=== PATIENT | female | born 1965 | race Caucasian/White ===

== ENCOUNTER 2020-04-03 17:07 | Inpatient (IN) | payer MEDICAID, OTHER ==
--- NOTE | 2020-04-03 18:12 | ED ---
Psych HPI - General Chief Complaint: Psychiatric Symptoms Stated Complaint: Mental Health Time Seen by Provider: 04/03/20 17:50 Source: patient, RN notes reviewed Mode of arrival: ambulatory - History of Present Illness Initial Comments: This is a 54-year-old female with a history of situational depression Who presents with complaints of feeling depressed and suicidal. She states her son was killed 2 weeks ago after he was run over by a boat in a [place] and was for admission. He does admit to drinking 3 beers today. She denies any drugs. No other modifying factors at this time. Patient does state that she thought about swimming out into the [place] [facility] [place] and getting run over by a boat herself. MD Complaint: suicidal ideation, feels depressed - Related Data Home Medications Medication Instructions Recorded Confirmed ALPRAZolam [Xanax] 0.25 mg PO DAILY PRN 04/03/20 04/03/20 Acetaminophen/Diphenhydramine 2 tab PO HS 04/03/20 04/03/20 [Tylenol PM 500-25mg] FLUoxetine HCL [PROzac] 40 mg PO DAILY 04/03/20 04/03/20 traZODone HCL 25 mg PO HS PRN 04/03/20 04/03/20 Allergies Allergy/AdvReac Type Severity Reaction Status Date / Time No Known Allergies Allergy Verified 04/03/20 20:08 Review of Systems ROS Statement: Those systems with pertinent positive or pertinent negative responses have been documented in the HPI. ROS Other: All systems not noted in ROS Statement are negative. Past Medical History Past Medical History: No Reported History History of Any Multi-Drug Resistant Organisms: None Reported Past Surgical History: No Surgical Hx Reported Past Psychological History: No Psychological Hx Reported Smoking Status: Never smoker Past Alcohol Use History: Daily Past Drug Use History: None Reported General Exam - General Exam Comments Initial Comments: This is a well-developed well-nourished awake alert oriented 3 female Limitations: no limitations General appearance: alert, in no apparent distress Head exam: Present: atraumatic, normocephalic, normal inspection Eye exam: Present: normal appearance, PERRL, EOMI. Absent: scleral icterus, conjunctival injection, periorbital swelling ENT exam: Present: normal exam, mucous membranes moist Neck exam: Present: normal inspection, full ROM. Absent: tenderness, meningismus, lymphadenopathy Respiratory exam: Present: normal lung sounds bilaterally. Absent: respiratory distress, wheezes, rales, rhonchi, stridor Cardiovascular Exam: Present: regular rate, normal rhythm, normal heart sounds. Absent: systolic murmur, diastolic murmur, rubs, gallop, clicks GI/Abdominal exam: Present: soft. Absent: distended, tenderness, guarding, rebound, rigid Extremities exam: Present: normal inspection, full ROM, normal capillary refill. Absent: tenderness, pedal edema, joint swelling, calf tenderness Back exam: Present: full ROM Neurological exam: Present: alert, oriented X3, CN II-XII intact Psychiatric exam: Present: normal affect, normal mood Skin exam: Present: warm, dry, intact, normal color. Absent: rash Course Vital Signs 04/03/20 17:32 Temperature 98 F Pulse Rate 79 Respiratory 18 Rate Blood Pressure 129/87 O2 Sat by Pulse 98 Oximetry Medical Decision Making - Medical Decision Making The patient was evaluated by psychiatric service will be admitted for inpatient treatment for depression - Lab Data Lab Results 04/03/20 Range/Units 18:12 Urine Opiates Screen Not Detected (NotDetected) Ur Oxycodone Screen Not Detected (NotDetected) Urine Methadone Screen Not Detected (NotDetected) Ur Propoxyphene Screen Not Detected (NotDetected) Ur Barbiturates Screen Not Detected (NotDetected) U Tricyclic Antidepress Not Detected (NotDetected) Ur Phencyclidine Scrn Not Detected (NotDetected) Ur Amphetamines Screen Not Detected (NotDetected) U Methamphetamines Scrn Not Detected (NotDetected) U Benzodiazepines Scrn Detected H (NotDetected) Urine Cocaine Screen Not Detected (NotDetected) U Marijuana (THC) Screen Detected H (NotDetected) Disposition Clinical Impression: Depression, Suicidal ideation Disposition: TRANSFER TO PSYCH HOSP/UNIT Condition: Fair Referrals: Nonstaff,Physician [Primary Care Provider] - 1-2 days
[2020-04-03 19:05] LABS: Amphetamine Screen,Urine Not Detected (NotDetected); Barbiturate Screen,Urine Not Detected (NotDetected); Benzodiazepines Screen,Urine Detected (NotDetected); Cocaine Screen,Urine Not Detected (NotDetected); Methadone Screen, Urine Not Detected (NotDetected); Opiate Screen,Urine Not Detected (NotDetected); Oxycodone Screen, Urine Not Detected (NotDetected); Phencyclidine Screen,Urine Not Detected (NotDetected); Tricyclic Antidepressant,Urine Not Detected (NotDetected); Urn Cannabinoid Scrn Detected (NotDetected)
[2020-04-03] MEDS ORDERED: MAGNESIUM HYDROXIDE 2,400 MG/10 ML CUP PO PRN (20:52)
[2020-04-03] MEDS ORDERED: ACETAMINOPHEN TAB 325 MG TAB PO PRN (20:52)
[2020-04-03] MEDS ORDERED: MAG HYDROX/AL HYDROX/SIMETH 30 ML CUP PO PRN (20:52)
[2020-04-03] MEDS ORDERED: ZIPRASIDONE 20 MG VIAL IM PRN (20:52)
[2020-04-03] MEDS ORDERED: LORazepam 2 MG/ML INJ IM PRN (20:57)
[2020-04-03] MEDS: LORazepam 1 MG TAB PO PRN (21:58)
--- NOTE | 2020-04-04 03:44 | P.MDCNMH ---
History of Present Illness H&P Date: 04/04/20 Chief Complaint: Suicidal ideation 54-year-old female denies any past medical or mental health issues Patient comes in due to suicidal ideation. She currently denies any suicidal thoughts. She reports that she has lost her son of 18 years old about 2 weeks ago she's been devastated since then. Today she was having thoughts of taking a boat and end her life. She discussed that with her uncle who was concerned regarding suicidal thoughts and recommended that she comes to the hospital for treatment. She was recently started on Prozac about 2 weeks ago but she doesn't feel that it's been helping her yet. Otherwise she denies any physical complaints at this point denies any fevers chills chest pain or trouble breathing denies any dizziness lightheadedness nausea vomiting or abdominal pain Review of Systems Pertinent positives as noted in HPI. 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 Past Anesthesia/Blood Transfusion Reactions: No Reported Reaction Smoking Status: Former smoker Medications and Allergies Home Medications Medication Instructions Recorded Confirmed Type ALPRAZolam [Xanax] 0.25 mg PO DAILY PRN 04/03/20 04/03/20 History Acetaminophen/Diphenhydramine 2 tab PO HS 04/03/20 04/03/20 History [Tylenol PM 500-25mg] FLUoxetine HCL [PROzac] 40 mg PO DAILY 04/03/20 04/03/20 History traZODone HCL 25 mg PO HS PRN 04/03/20 04/03/20 History Allergies Allergy/AdvReac Type Severity Reaction Status Date / Time No Known Allergies Allergy Verified 04/03/20 20:08 Physical Exam Vitals: Vital Signs Temp Pulse Pulse Resp BP BP Pulse Ox 04/04/20 00:47 97.6 F 74 18 127/87 99 04/03/20 20:59 98.1 F 71 18 135/79 100 04/03/20 17:32 98 F 79 18 129/87 98 Intake and Output 04/03/20 04/03/20 04/04/20 14:59 22:59 06:59 Other: Weight 77.111 kg 79.832 kg Constitutional: No acute distress, conversant, pleasant Eyes: Anicteric sclerae, moist conjunctiva, no lid-lag Pupils equal round reactive to light ENMT: NC/AT Oropharynx clear, no erythema, exudates Neck: Supple, FROM, no masses, or JVD No carotid bruits No thyromegaly Lungs: Clear to auscultation Clear to percussion Normal respiratory effort, no accessory muscle use Cardiovascular: Heart regular in rate and rhythm, No murmurs, gallops, or rubs No peripheral edema Abdominal: Soft Nontender, no guarding, rebound or rigidity Abdomen moving with respiration Normoactive bowel sounds No hepatomegaly, No splenomegaly No palpable mass No abdominal wall hernia noted Skin: Normal temperature, tone, texture, turgor No induration No subcutaneous nodules No rash, lesions No ulcers Extremities: No digital cyanosis No clubbing Pedal pulses intact and symmetrical Radial pulses intact and symmetrical No calf tenderness Psychiatric: Alert and oriented to person, place and time Appropriate affect fair judgement Neuro Muscles Strength 5/5 in all 4 extremities Sensation to light touch grossly present throughout Cranial nerves II-XII grossly intact No focal sensory deficits Lymphatics: no palpable cervical or supraclavicular , or inguinal lymph nodes Cranial Nerve Examination - Cranial Nerves Cranial Nerve II- Optic: Intact Cranial Nerve III- Oculomotor: Intact Cranial Nerve IV- Trochlear: Intact Cranial Nerve V- Trigeminal: Intact Cranial Nerve - Abducens: Intact Cranial Nerve VII- Facial: Intact Cranial Nerve VIII- Auditory: Intact Cranial Nerve IX- Glossopharyngeal: Intact Cranial Nerve X- Vagus: Intact Cranial Nerve XI- Accessory: Intact Cranial Nerve XII- Hypoglossal: Intact Results Labs: Abnormal Lab Results - Last 24 Hours (Table) 04/03/20 Range/Units 18:12 U Benzodiazepines Scrn Detected H (NotDetected) U Marijuana (THC) Screen Detected H (NotDetected) Assessment and Plan Assessment: Suicidal thoughts Management per psych Follow-up labs Thank you for allowing us to participate in the care of this patient. We will follow peripherally. Do not hesitate to contact us with questions. Someone can be reached from the [facility] hospitalist group at all hours of the day at [phone].
[2020-04-04 07:58] LABS: Basophils # (A) 0.2 k/uL (0-0.2); Basophils % (A) 2 %; Eosinophils # (A) 0.3 k/uL (0-0.7); Eosinophils % (A) 4 %; HCT 44.9 % (34.0-46.0); Lymphocytes # (A) 2.1 k/uL (1.0-4.8); Lymphocytes % (A) 28 %; MCH 28.8 pg (25.0-35.0); MCHC 31.3 g/dL (31.0-37.0); MCV 92.2 fL (80.0-100.0); Mean Platelet Volume 6.5; Monocytes # (A) 0.3 k/uL (0-1.0); Monocytes % (A) 4 %; Neutrophils # (A) 4.7 k/uL (1.3-7.7); Neutrophils % (A) 61 %; Platelet Count 347 k/uL (150-450); RBC 4.87 m/uL (3.80-5.40); RDW 12.3 % (11.5-15.5); WBC 7.7 k/uL (3.8-10.6)
[2020-04-04 08:09] LABS: ALT 82 U/L (4-34); AST 58 U/L (14-36); African American GFR (CKD) >90 (>60 ml/min/1.73 sqM); Albumin 4.7 g/dL (3.5-5.0); Alkaline Phosphatase 80 U/L (38-126); Anion Gap 12 mmol/L; Blood Urea Nitrogen 13 mg/dL (7-17); Calcium 9.7 mg/dL (8.4-10.2); Carbon Dioxide 28 mmol/L (22-30); Chloride 101 mmol/L (98-107); Cholesterol 252 mg/dL (<200); Glucose 100 mg/dL (74-99); HDL Cholesterol 68 mg/dL (40-60); LDL Cholesterol,Calculated 163 mg/dL (0-99); Non-African American GFR(CKD) >90 (>60 ml/min/1.73 sqM); Potassium 4.5 mmol/L (3.5-5.1); Sodium 141 mmol/L (137-145); Total Bilirubin 3.1 mg/dL (0.2-1.3); Total Protein 8.1 g/dL (6.3-8.2); Triglycerides 105 mg/dL (<150)
[2020-04-04] MEDS ORDERED: PNEUMOCOCCAL VACC-PNEUMOVAX 23 25 MCG/0.5 ML VIAL IM ONE (09:00)
[2020-04-04] MEDS: LORazepam 1 MG TAB PO PRN (09:45)
[2020-04-04] MEDS: FLUoxetine HCL 20 MG CAP PO SCH (12:30)
--- NOTE | 2020-04-04 13:21 | P.HP ---
Psychiatric H&P - . H&P Date: 04/04/20 History & Physical: Allergies Allergy/AdvReac Type Severity Reaction Status Date / Time No Known Allergies Allergy Verified 04/03/20 20:08 Vital Signs Temp 99.1 F 04/04/20 09:43 Pulse 119 H 04/04/20 09:43 Resp 16 04/04/20 09:43 BP 123/81 04/04/20 09:43 Pulse Ox 98 04/04/20 09:43 Intake & Output 04/03/20 04/04/20 04/04/20 18:59 06:59 18:59 Weight 77.111 kg 79.832 kg Laboratory Last Values WBC 7.7 k/uL (3.8-10.6) 04/04/20 07:18 RBC 4.87 m/uL (3.80-5.40) 04/04/20 07:18 Hgb 14.0 gm/dL (11.4-16.0) 04/04/20 07:18 Hct 44.9 % (34.0-46.0) 04/04/20 07:18 MCV 92.2 fL (80.0-100.0) 04/04/20 07:18 MCH 28.8 pg (25.0-35.0) 04/04/20 07:18 MCHC 31.3 g/dL (31.0-37.0) 04/04/20 07:18 RDW 12.3 % (11.5-15.5) 04/04/20 07:18 Plt Count 347 k/uL (150-450) 04/04/20 07:18 Neutrophils % 61 % 04/04/20 07:18 Lymphocytes % 28 % 04/04/20 07:18 Monocytes % 4 % 04/04/20 07:18 Eosinophils % 4 % 04/04/20 07:18 Basophils % 2 % 04/04/20 07:18 Neutrophils # 4.7 k/uL (1.3-7.7) 04/04/20 07:18 Lymphocytes # 2.1 k/uL (1.0-4.8) 04/04/20 07:18 Monocytes # 0.3 k/uL (0-1.0) 04/04/20 07:18 Eosinophils # 0.3 k/uL (0-0.7) 04/04/20 07:18 Basophils # 0.2 k/uL (0-0.2) 04/04/20 07:18 Sodium 141 mmol/L (137-145) 04/04/20 07:18 Potassium 4.5 mmol/L (3.5-5.1) 04/04/20 07:18 Chloride 101 mmol/L (98-107) 04/04/20 07:18 Carbon Dioxide 28 mmol/L (22-30) 04/04/20 07:18 Anion Gap 12 mmol/L 04/04/20 07:18 BUN 13 mg/dL (7-17) 04/04/20 07:18 Creatinine 0.70 mg/dL (0.52-1.04) 04/04/20 07:18 Est GFR (CKD-EPI)AfAm >90 (>60 ml/min/1.73 sqM) 04/04/20 07:18 Est GFR (CKD-EPI)NonAf >90 (>60 ml/min/1.73 sqM) 04/04/20 07:18 Glucose 100 mg/dL (74-99) H 04/04/20 07:18 Calcium 9.7 mg/dL (8.4-10.2) 04/04/20 07:18 Total Bilirubin 3.1 mg/dL (0.2-1.3) H 04/04/20 07:18 AST 58 U/L (14-36) H 04/04/20 07:18 ALT 82 U/L (4-34) H 04/04/20 07:18 Alkaline Phosphatase 80 U/L (38-126) 04/04/20 07:18 Total Protein 8.1 g/dL (6.3-8.2) 04/04/20 07:18 Albumin 4.7 g/dL (3.5-5.0) 04/04/20 07:18 Triglycerides 105 mg/dL (<150) 04/04/20 07:18 Cholesterol 252 mg/dL (<200) H 04/04/20 07:18 LDL Cholesterol, Calc 163 mg/dL (0-99) H 04/04/20 07:18 HDL Cholesterol 68 mg/dL (40-60) H 04/04/20 07:18 TSH 1.940 mIU/L (0.465-4.680) 04/04/20 07:18 Urine Opiates Screen Not Detected (NotDetected) 04/03/20 18:12 Ur Oxycodone Screen Not Detected (NotDetected) 04/03/20 18:12 Urine Methadone Screen Not Detected (NotDetected) 04/03/20 18:12 Ur Propoxyphene Screen Not Detected (NotDetected) 04/03/20 18:12 Ur Barbiturates Screen Not Detected (NotDetected) 04/03/20 18:12 U Tricyclic Antidepress Not Detected (NotDetected) 04/03/20 18:12 Ur Phencyclidine Scrn Not Detected (NotDetected) 04/03/20 18:12 Ur Amphetamines Screen Not Detected (NotDetected) 04/03/20 18:12 U Methamphetamines Scrn Not Detected (NotDetected) 04/03/20 18:12 U Benzodiazepines Scrn Detected (NotDetected) H 04/03/20 18:12 Urine Cocaine Screen Not Detected (NotDetected) 04/03/20 18:12 U Marijuana (THC) Screen Detected (NotDetected) H 04/03/20 18:12 04/04/20 13:14 IDENTIFYING DATA: Patient is a 54-year-old female who currently is staying with her uncle in a house however lives in [place] permanently has one son and is currently and unemployed. HPI: Patient presented to the hospital yesterday with complaints of depression and suicidal thoughts. Patient reported to the ER staff her son was killed approximately 2 weeks ago as he was [place] a [place] and also that her 2 years ago and was having thoughts of swimming in the [place] to get killed by a boat prior to coming into the hospital was brought in by her uncle. Patient's UDS is positive for THC and benzodiazepines. Patient was agreeable to be interviewed however was minimizing her suicidal thoughts and her symptoms. She states that she is currently going through grief due to her significant losses in her life. She states that she had thoughts of jumping in the river however states that "it was just the shock of it all". She claims that she is still trying to organize the memorial service for her son and is going to his things and was feeling tearful however states that after she took an Ativan last night that she feels less tearful and less sad today. She admits to ongoing grief some guilt however claims that her concentration and appetite are fair. She states that she is sleeping approximately 8-9 hours a night. Patient denies any suicidal or homicidal ideations intent or plan. At this time patient denies any auditory or visual hallucinations. Patient denies any flight of ideas racing thoughts and increased in goal directed behavior. Patient admits to using alcohol drinking one bottle of wine per night for the past 2-3 years and she denies any DUIs or any history of DTs. She denies any cigarette use. She claims that she smokes occasional marijuana. PAST PSYCHIATRIC HISTORY: Patient states that she has a history of depression and anxiety. Claims that she was previously on Prozac and Xanax and trazodone Patient denies any previous psychiatric hospitalizations.. Patient claims that she does not have an outpatient psychiatrist however does follow up with her primary care physician for medications. She states that she does see a therapist in [place] regularly. Patient denies any history of suicide attempts in the past. PMH:denies ALLERGIES: as per EMR CHEMICAL DEPENDENCY HISTORY: as per HPI FAMILY PSYCHIATRIC/SUBSTANCE USE HISTORY: denies SOCIAL HISTORY: Patient was born and raised in [facility] and claims that she moved to [place] afterwards. She is currently living in [place] and a house however now staying locally with her uncle. She claims that she has one son and is currently and unemployed. She states that she graduated college with a bachelor in economics. MENTAL STATUS EXAM: General Appearance: Patient appears to be stated age is alert, argumentative and guarded. patient appears to have fair hygiene and grooming. Behavior: Patient is seated without any agitated behavior. Guarded and argumentative. Speech: Patient's speech is fluent and nonpressured. Mood/Affect: Patient reports their mood is depressed and anxious, affect is congruent and constricted. Suicidality/Homicidality: Patient denies having any homicidal ideation intent or plan. Denies any suicidal ideations intent or plan Perceptions: Patient denies any visual hallucinations and denies any auditory hallucinations Though content/process: There is no evidence of any delusional thought content and thought process is linear and goal-directed. Minimizing her symptoms and demanding discharge. Memory and concentration: AOX3, grossly intact for the purposes of this session. Can spell "WORLD" backwards Judgment and insight: poor STRENGTHS/WEAKNESSES: strength is that patient is resilient. Weakness is that patient has poor judgment and is impulsive INTELLECT: average IMPRESSIONS: Major depressive disorder, without psychotic features Anxiety disorder unspecified Cannabis abuse Alcohol use disorder PLAN: -Patient is admitted under voluntary status to [facility] for stabilization of psychiatric symptoms and safety. Patient signed adult voluntary form and medication consent and is placed in patient's chart. -Medications : Will start patient on Prozac 40 mg daily for mood/anxiety. This dose can be titrated up as needed over the weekend. Patient is also agreeable to take trazodone 50 mg daily at bedtime for insomnia/mood. -Ativan and Geodon PRN for agitation/aggression -Started thiamine, MVM for etoh use -CIWA protocol with Ativan PRN for ETOH withdrawal -Patient was counselled on substance abuse and desired to cut back on use -Patient was informed of the risks, benefits and side effects of the medication and patient verbally consented to taking the medications. Patient signed med consent form and was placed in chart. -Internal Medicine consult to perform medical evaluation and physical. -NRT -not needed as patient does not smoke. -SW on board for discharge planning. Encourage patient to participate in groups to work on coping skills. Likely discharge early next week if patient shows significant improvement over the weekend. We'll speak patient about rehab and other substance use treatment options.
[2020-04-04] MEDS: traZODone HCL 50 MG TAB PO SCH (20:13)
[2020-04-05] MEDS: LORazepam 1 MG TAB PO PRN (09:28)
[2020-04-05] MEDS: FLUoxetine HCL 20 MG CAP PO SCH (09:29)
[2020-04-05] MEDS: THIAMINE 100 MG TAB PO SCH (09:29)
[2020-04-05] MEDS: MULTIVITAMINS, THERA 1 EACH TAB PO SCH (09:29)
[2020-04-05] MEDS: FOLIC ACID 1 MG TAB PO SCH (09:29)
[2020-04-05] MEDS: traZODone HCL 50 MG TAB PO SCH (20:47)
--- NOTE | 2020-04-05 21:59 | PN ---
PROGRESS NOTE CHIEF COMPLAINT: The patient was depressed with suicidal thinking. She had significant grief issues with the of her son 2 weeks prior to admission. INTERVAL HISTORY: The patient has been doing fair. She had a quiet evening last night. She has attended some groups. She chose not to attend others. She has received p.r.n.'s for anxiety. She slept fairly well last night. Today she has been up and she comes out in the day area. She has been attending groups today. She has been fairly interactive in the group activities. Her CIWA scales have been negligible except for 1 this morning when her assessment was 8. She notes that she had been off Prozac for about 6 months, though then started Prozac again 2 weeks ago. She said she started on 40 mg a day and has had no problems with it. She acknowledged that she has been drinking a bottle of wine per day. He says that she can relate her drinking to some of her issues of depression. She has been cooperative with care. She tolerates her psychotropic medications. MENTAL STATUS: Patient gave fairly good eye contact. She was restless. She answered questions with brief responses. Her thoughts were clear. She did not say a lot, though she responded appropriately to questions. Her affect was constricted. Her mood reserved. She appeared somewhat distressed. There was no indication of thought disorder. She voiced no thoughts of harm to self or others. Cognition was clear. ASSESSMENT: I will continue the current diagnosis and treatment plan. The patient will continue Prozac 40 mg a day and trazodone 50 mg at bedtime. We will continue to engage the patient in individual and group therapeutic activities. She appears to be making progress in terms of some improvement of mood. I discussed expectations for antidepressant treatment for depression. We discussed the time course, reviewed potential side effects. We will focus on stabilization and discharge planning. MMODL / IJN: [id number] /
[2020-04-06] MEDS: MULTIVITAMINS, THERA 1 EACH TAB PO SCH (08:31)
[2020-04-06] MEDS: FOLIC ACID 1 MG TAB PO SCH (08:31)
[2020-04-06] MEDS: THIAMINE 100 MG TAB PO SCH (08:31)
[2020-04-06] MEDS: FLUoxetine HCL 20 MG CAP PO SCH (08:31)
--- NOTE | 2020-04-06 10:42 | PN ---
PROGRESS NOTE DATE OF SERVICE: 04/06/2020 CHIEF COMPLAINT: The patient was depressed with suicidal thinking. She has significant grief issues with the of her son 2 weeks prior to admission. INTERVAL HISTORY: Patient has been doing fair. She had a quiet evening last night. She comes out in the day area. She interacts with others. She has been attending groups. She generally prefers to socialize with a few peers. She slept 8 hours last night. Today she has been up. She continues with groups. Her CIWA scores have been zero. She has run a high pulse. Her vital signs this morning include BP 111/75, pulse 103, temp 98.7, respirations 18, oxygen saturation 99. The patient talked at length today about grief issues regarding her son who in an accident [place] a [place] when he was run over by a boat. She notes that she has another son who is 21. She says their relationship is poor, though she wants to continue to work to try to improve that. She notes that she has grief issues over the of her 2 years ago. She actually was at the time that he , though she said they remained close friends even though they . She notes that she is in a significant transition period in her life, in that she needs to move in a different direction from the social sphere she was involved in because there was a lot of drinking. She notes that she has been drinking regularly on a daily basis at least 1 bottle of wine per day for the last 2 years. 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 She says she does have some plans of looking to work in volunteer work to help deal with grief issues. She says that she has interest right now in going into a short-term rehab program, possibly for 2 weeks. She says she is strongly motivated to stay completely off alcohol and all other abusive substances. She tolerates her psychotropic medication. MENTAL STATUS: Patient gave good eye contact. She was restless. She answered questions with direct responses. She was spontaneous and interactive. Her affect was blunted. Her mood was depressed. She was moderately distressed. She had a significant focus on talking about grief issues. There was no indication of psychotic symptoms. She voiced no thoughts of harm to self or others. Cognition was clear. ASSESSMENT: I will continue the current diagnosis and treatment plan. The patient will continue Prozac 40 mg a day. We had an extensive discussion of withdrawal issues. I encouraged her to consider longer-term therapy, though she is not likely to benefit from individual psychotherapy until she is least a few months clean of alcohol. She says she has talked with the delinquency prevention social worker here in regard to a referral for inpatient substance abuse treatment. Again, she is in transition in regard to her return to [place], though does seem to have some awareness of what issues she needs to address. We will focus on stabilization and discharge planning. I anticipate the patient being discharge relatively early in the week. MMSAIMA / FAISALN: [id number] /
[2020-04-06] MEDS: traZODone HCL 50 MG TAB PO SCH (20:17)
[2020-04-07 06:14] VITALS: BP 112/69; PULSE 76; RESP 16; TEMP 97.9
[2020-04-07] MEDS: THIAMINE 100 MG TAB PO SCH (08:26)
[2020-04-07] MEDS: FOLIC ACID 1 MG TAB PO SCH (08:26)
[2020-04-07] MEDS: FLUoxetine HCL 20 MG CAP PO SCH (08:26)
[2020-04-07] MEDS: MULTIVITAMINS, THERA 1 EACH TAB PO SCH (08:26)
--- NOTE | 2020-04-07 10:01 | P.DS ---
Providers Date of admission: 04/03/20 20:43 Expected date of discharge: 04/07/20 Attending physician: Jose Rod MD Consults: 04/03/20 20:52 Consult Physician Routine Consulting Provider: Abeba Physician Consult Reason/Comments: medical management Do you want consulting provider notified?: Yes Primary care physician: Physician Nonstaff - Discharge Diagnosis(es) (1) Major depressive disorder without psychotic features Current Visit: Yes Status: Acute Priority: High (2) Anxiety disorder, unspecified Current Visit: Yes Status: Acute Priority: Medium (3) Cannabis abuse Current Visit: Yes Status: Acute Priority: Medium (4) Alcohol use disorder Current Visit: Yes Status: Acute Priority: Medium Hospital Course: Admission HPI: Patient is a 54-year-old female who currently is staying with her uncle in a house however lives in [place] permanently has one son and is currently and unemployed. Patient presented to the hospital yesterday with complaints of depression and suicidal thoughts. Patient reported to the ER staff her son was killed approximately 2 weeks ago as he was run over [place] a boat in [place] and also that her 2 years ago and was having thoughts of swimming in the [place] to get killed by a boat prior to coming into the hospital was brought in by her uncle. Patient's UDS is positive for THC and benzodiazepines. Patient was agreeable to be interviewed however was minimizing her suicidal thoughts and her symptoms. She states that she is currently going through grief due to her significant losses in her life. She states that she had thoughts of jumping in the river however states that "it was just the shock of it all". She claims that she is still trying to organize the memorial service for her son and is going to his things and was feeling tearful however states that after she took an Ativan last night that she feels less tearful and less sad today. She admits to ongoing grief some guilt however claims that her concentration and appetite are fair. She states that she is sleeping approximately 8-9 hours a night. Patient denies any suicidal or homicidal ideations intent or plan. At this time patient denies any auditory or visual hallucinations. Patient denies any flight of ideas racing thoughts and increased in goal directed behavior. Patient admits to using alcohol drinking one bottle of wine per night for the past 2-3 years and she denies any DUIs or any history of DTs. She denies any cigarette use. She claims that she smokes occasional marijuana. Hospital course: Upon admission to the unit patient was initially depressed and suicidal. Patient was however directable and agreeable to commence treatment. Patient got along well with other patients on the unit and followed unit protocol. Patient was compliant with the medications and denied any side effects throughout hospital course. Patient was started on her home dose of Prozac 40 mg daily for mood/anxiety and also started on trazodone 50 mg daily at bedtime for insomnia/mood. Patient was placed on CIWA protocol with Ativan when necessary for alcohol withdrawal symptoms. Patient spoke of her grief towards her son and ex-, stressors and engaged in therapy both group and individual. Patient was also seen by medical team for history and physical exam. Throughout the course of the hospitalization patient gradually improved with regards to mood, anxiety, sleep and became future oriented with improved insight and judgment. On the day of discharge patient denied any suicidal or homicidal ideations intent or plan denied any auditory or visual hallucinations. Patient endorsed wanting to live for her son and her future. The patient denied any access to guns or weapons. Patient denied any paranoia and did not endorse any delusions. Patient does have a significant history of substance abuse and was counseled on abstaining from all substances including alcohol and marijuana. Patient was offered however declined inpatient substance-abuse rehab and was also offered medications to help with alcohol cravings however she refused. Patient was however agreeable to start going to AA meetings in the community. Patient was also counseled on the medications and need for regular compliance and was encouraged to follow-up with their outpatient appointment for mental health and also for primary care. Prior to discharge a family meeting will be arranged by social media senior associate to answer any questions and ensure safety upon discharge. Mental status exam: General Appearance: Patient appears to be stated age is alert, directable, and cooperative. Patient is in no acute distress and has fair hygiene and grooming Behavior: Patient is calmly seated without any agitated behavior. Cooperative. Speech: Patient's speech is fluent and nonpressured. Mood/Affect: Patient reports their mood is "better", affect is congruent and euthymic. Suicidality/Homicidality: Patient denies having any suicidal or homicidal kaitlin ation intent or plan. Perceptions: Patient denies any auditory or visual hallucinations. Though content/process: There is no evidence of any delusional thought content and thought process is linear and goal-directed. more future oriented Memory and concentration: AOX3, grossly intact for the purposes of this session. Can spell "WORLD" backwards correctly. Judgment and insight: Improved with guarded prognosis Impression: Major depressive disorder, without psychotic features Anxiety disorder unspecified Cannabis abuse Alcohol use disorder Plan: -Continue with discharge today as patient has improved and stabilized psychiatrically and is not currently an imminent threat to herself and/or others. -Continue medications: Continue with Prozac 40 mg daily for mood/anxiety, trazodone 50 mg daily at bedtime for insomnia/mood. -Patient was counseled on the need for medication compliance and appropriate follow-up at mental health and also primary care for medical issues. Patient verbalized understanding and agreed. -Social work to arrange for and conduct family meeting to ensure safety upon discharge and answer any questions/concerns. Social work also to arrange for patients follow up appointments for psychiatric care along with follow up with primary care provider. -Patient counseled on abstaining from recreational drugs and marijuana and alcohol. Was informed/educated on the adverse effects on their physical and mental health. Patient verbally agreed and understood. Patient was offered substance abuse treatment however declined at this time. Patient was however agreeable to commence AA meetings in the community and will be given information/resources on this. -Patient was instructed to return to the hospital or seek immediate medical care if their psychiatric or medical symptoms do worsen or reoccur. Allergies Allergy/AdvReac Type Severity Reaction Status Date / Time No Known Allergies Allergy Verified 04/03/20 20:08 Laboratory Results WBC 7.7 k/uL (3.8-10.6) 04/04/20 07:18 RBC 4.87 m/uL (3.80-5.40) 04/04/20 07:18 Hgb 14.0 gm/dL (11.4-16.0) 04/04/20 07:18 Hct 44.9 % (34.0-46.0) 04/04/20 07:18 MCV 92.2 fL (80.0-100.0) 04/04/20 07:18 MCH 28.8 pg (25.0-35.0) 04/04/20 07:18 MCHC 31.3 g/dL (31.0-37.0) 04/04/20 07:18 RDW 12.3 % (11.5-15.5) 04/04/20 07:18 Plt Count 347 k/uL (150-450) 04/04/20 07:18 Neutrophils % 61 % 04/04/20 07:18 Lymphocytes % 28 % 04/04/20 07:18 Monocytes % 4 % 04/04/20 07:18 Eosinophils % 4 % 04/04/20 07:18 Basophils % 2 % 04/04/20 07:18 Neutrophils # 4.7 k/uL (1.3-7.7) 04/04/20 07:18 Lymphocytes # 2.1 k/uL (1.0-4.8) 04/04/20 07:18 Monocytes # 0.3 k/uL (0-1.0) 04/04/20 07:18 Eosinophils # 0.3 k/uL (0-0.7) 04/04/20 07:18 Basophils # 0.2 k/uL (0-0.2) 04/04/20 07:18 Sodium 141 mmol/L (137-145) 04/04/20 07:18 Potassium 4.5 mmol/L (3.5-5.1) 04/04/20 07:18 Chloride 101 mmol/L (98-107) 04/04/20 07:18 Carbon Dioxide 28 mmol/L (22-30) 04/04/20 07:18 Anion Gap 12 mmol/L 04/04/20 07:18 BUN 13 mg/dL (7-17) 04/04/20 07:18 Creatinine 0.70 mg/dL (0.52-1.04) 04/04/20 07:18 Est GFR (CKD-EPI)AfAm >90 (>60 ml/min/1.73 sqM) 04/04/20 07:18 Est GFR (CKD-EPI)NonAf >90 (>60 ml/min/1.73 sqM) 04/04/20 07:18 Glucose 100 mg/dL (74-99) H 04/04/20 07:[address] Glu mg/dL 97 04/04/20 07:18 Hemoglobin A1c 5.0 % (4.0-6.0) 04/04/20 07:18 Calcium 9.7 mg/dL (8.4-10.2) 04/04/20 07:18 Total Bilirubin 3.1 mg/dL (0.2-1.3) H 04/04/20 07:18 AST 58 U/L (14-36) H 04/04/20 07:18 ALT 82 U/L (4-34) H 04/04/20 07:18 Alkaline Phosphatase 80 U/L (38-126) 04/04/20 07:18 Total Protein 8.1 g/dL (6.3-8.2) 04/04/20 07:18 Albumin 4.7 g/dL (3.5-5.0) 04/04/20 07:18 Triglycerides 105 mg/dL (<150) 04/04/20 07:18 Cholesterol 252 mg/dL (<200) H 04/04/20 07:18 LDL Cholesterol, Calc 163 mg/dL (0-99) H 04/04/20 07:18 HDL Cholesterol 68 mg/dL (40-60) H 04/04/20 07:18 TSH 1.940 mIU/L (0.465-4.680) 04/04/20 07:18 Urine Opiates Screen Not Detected (NotDetected) 04/03/20 18:12 Ur Oxycodone Screen Not Detected (NotDetected) 04/03/20 18:12 Urine Methadone Screen Not Detected (NotDetected) 04/03/20 18:12 Ur Propoxyphene Screen Not Detected (NotDetected) 04/03/20 18:12 Ur Barbiturates Screen Not Detected (NotDetected) 04/03/20 18:12 U Tricyclic Antidepress Not Detected (NotDetected) 04/03/20 18:12 Ur Phencyclidine Scrn Not Detected (NotDetected) 04/03/20 18:12 Ur Amphetamines Screen Not Detected (NotDetected) 04/03/20 18:12 U Methamphetamines Scrn Not Detected (NotDetected) 04/03/20 18:12 U Benzodiazepines Scrn Detected (NotDetected) H 04/03/20 18:12 Urine Cocaine Screen Not Detected (NotDetected) 04/03/20 18:12 U Marijuana (THC) Screen Detected (NotDetected) H 04/03/20 18:12 Vital Signs Temp 97.9 F 04/07/20 06:13 Pulse 76 04/07/20 06:13 Resp 16 04/07/20 06:13 BP 112/69 04/07/20 06:13 Pulse Ox 99 04/06/20 08:28 Intake & Output 04/06/20 04/07/20 04/07/20 18:59 06:59 18:59 Weight 79.1 kg Patient Condition at Discharge: Stable Plan - Discharge Summary Discharge Rx Participant: No New Discharge Prescriptions: New traZODone HCL [Desyrel] 50 mg PO HS 30 Days tab Folic Acid 1 mg PO DAILY 30 Days tab Multivitamins, Thera [Multivitamin (formulary)] 1 each PO DAILY 30 Days tab Acetaminophen Tab [Tylenol] 650 mg PO Q4HR PRN tab PRN Reason: Pain/Discomfort Thiamine [Vitamin B-1] 100 mg PO DAILY 30 Days tab Continue FLUoxetine HCL [PROzac] 40 mg PO DAILY 30 Days cap Discontinued traZODone HCL 25 mg PO HS PRN PRN Reason: Insomnia Acetaminophen/Diphenhydramine [Tylenol PM 500-25mg] 2 tab PO HS ALPRAZolam [Xanax] 0.25 mg PO DAILY PRN PRN Reason: Anxiety Discharge Medication List Acetaminophen Tab [Tylenol] 650 mg PO Q4HR PRN tab 04/07/20 [Rx] FLUoxetine HCL [PROzac] 40 mg PO DAILY 30 Days cap 04/07/20 [Rx] Folic Acid 1 mg PO DAILY 30 Days tab 04/07/20 [Rx] Multivitamins, Thera [Multivitamin (formulary)] 1 each PO DAILY 30 Days tab 04/07/20 [Rx] Thiamine [Vitamin B-1] 100 mg PO DAILY 30 Days tab 04/07/20 [Rx] traZODone HCL [Desyrel] 50 mg PO HS 30 Days tab 04/07/20 [Rx] Follow up Appointment(s)/Referral(s): Nonstaff,Physician [Primary Care Provider] - 1-2 days Patient Instructions/Handouts: Depression (DC), Help Prevent Suicide (DC) Activity/Diet/Wound Care/Special Instructions: Activity and diet as tolerated. Avoid the use of street drugs and alcohol. Take all medications as prescribed. When you are in need of refills on your medications please contact your medical provider and/or outpatient psychiatrist to have this done. Please go to scheduled outpatient appointment for aftercare treatment. If symptoms return or become worse, call the crisis line at and/or go to the nearest emergency room for evaluation Discharge Disposition: HOME SELF-CARE
[2020-04-07] MEDS ORDERED: FLUoxetine HCL 20 MG CAP PO STA (10:37)
[2020-04-08] MEDS ORDERED: FLUoxetine HCL 20 MG CAP PO SCH (09:00)
== END 2020-04-07 13:29 | disposition home or self-care (01) | DRG 881 ==
LOC: EC 17:07 → 3MHU 20:43
PROVIDERS: ADMIT Psychiatry & Neurology Psychiatry; ATTEND Psychiatry & Neurology Psychiatry
DX: F32.9 Major depressive disorder, single episode, unspecified (principal); R45.851 Suicidal ideations; F12.10 Cannabis abuse, uncomplicated; F41.9 Anxiety disorder, unspecified; G47.00 Insomnia, unspecified; Z72.89 Other problems related to lifestyle; Z79.899 Other long term (current) drug therapy
CPT/HCPCS: 80053; 80061; 80306; 82075; 83036; 84443; 85025; 90732; 99285